=== PATIENT | female | born 1960 | race Two or more races ===

== ENCOUNTER 2017-11-28 07:29 | Emergency (ER) | payer MEDICAID, OTHER ==
[~2017-11-28] VITALS: Ht 154.9 cm; Wt 64.4 kg
[~2017-11-28 07:29] MED LIST: NORPTMEDS CO
[2017-11-28 08:16] VITALS: BP 123/72
== END 2017-11-28 10:15 | disposition home or self-care (01) ==
LOC: ER 07:29
DX: M79.621 Pain in right upper arm (principal)
CPT/HCPCS: 73060